=== PATIENT | male | born 1955 | race Caucasian/White ===

== ENCOUNTER 2018-02-15 06:48 | Inpatient (IN) ==
--- NOTE | 2018-02-15 06:56 | History & Physical Report ---
Date of Encounter: 02/15/18 Time of Encounter: 06:55 24 Hour HP Update - Instructions Instructions: If the History and Physical is less than 30 days old and was completed prior to A.M. admission and or procedure and has NOT been updated on calendar day of procedure please complete this update prior to performing procedure. - Update Patient reports changes in Medical Condition: No Changes in examination, assessment, or condition: No Changes in Medication: No Preop tests/diagnostics Reviewed: Yes Surgery Remains Indicated: Yes Consent for Planned Operative Procedure(s) Verified: Yes - Pre-Operative Checklist Preoperative Checklist Indicated: No Prophylactic Antibiotic Ordered: Yes Is VTE Prophylaxis Indicated?: Yes
[2018-02-15] MEDS ORDERED: Lidocaine -MPF 2% 2 ML VIAL ONE (07:02)
[2018-02-15] MEDS ORDERED: *HR* Midazolam HCl 2 MG/2 ML VIAL ONE (07:02)
[2018-02-15] MEDS ORDERED: *HR* FentaNYL (PF) 100 MCG/2 ML VIAL ONE (07:02)
[2018-02-15] MEDS ORDERED: *HR* Rocuronium Bromide 50 MG/5 ML VIAL ONE (07:02)
[2018-02-15] MEDS ORDERED: *HR* Propofol 200 MG/20 ML VIAL IVP ONE (07:02)
[2018-02-15] MEDS ORDERED: Famotidine 20 MG/2 ML VIAL IVP ONE (07:33)
[2018-02-15] MEDS ORDERED: CeFAZolin Syr 2,000MG/20 ML 2,000 MG/20 ML SYRINGE IVPB ONE (07:33)
[2018-02-15] MEDS ORDERED: Acetaminophen IV 1,000 MG/100 ML INFUS..BTL IVPB ONE (07:34)
[2018-02-15] MEDS ORDERED: Pregabalin 75 MG CAPSULE PO ONE (07:34)
[2018-02-15] MEDS ORDERED: Ethanol\\Acetic Acid\\Na Ace\\Ben 1,000 ML IRRIG.SOLN IR ONE (07:38)
[2018-02-15] MEDS ORDERED: Ringers Solution, Lactated 1,000 ML IVC SCH ×2 (07:45)
[2018-02-15] MEDS ORDERED: Tetracaine/PF 20 MG/2 ML AMPUL ONE (08:03)
[2018-02-15] MEDS ORDERED: ROPIVACAINE HCL/PF 0.5% 30 ML VIAL ONE (08:03)
--- NOTE | 2018-02-15 08:06 | Anesthesia Evaluation PreOp ---
Date of Encounter: 02/15/18 Time of Encounter: 08:00 - Past History Planned Operation: Left THR Cardiac History: HTN, Hyperlipidemia Pulmonary History: Denies Any Significant HX ACCOUNTS PAYABLE REPRESENTATIVE History: Denies Any Significant HX Other Medical History: Denies Any Significant HX Anesthesia History: No Prior Anesthetic Complications Alcohol Use: rarely Drug use: none Medications and Allergies Aspirin Enteric Coated [Aspirin EC] 325 mg PO BID 10 Days #20 tablet. [Rx] OxyCODONE Immed Rel [Roxicodone 5 MG] 5 mg PO Q6HR PRN 7 Days #28 tablet [Rx] Acetaminophen [Tylenol] 650 mg PO Q6HR 02/15/18 [History] Bisoprolol/HCTZ 10/6.25 [Ziac 106.25] 1 each PO DAILY 02/15/18 [History] Simvastatin [Zocor] 5 mg PO HS 02/15/18 [History] 3 Allergy/AdvReac Type Severity Reaction Status Date / Time No Known Allergies Allergy Unverified 02/08/18 15:48 - Meds/Allergy Pre-op Review Medications Reviewed: Yes Allergies Reviewed: Yes Beta Blockers on Current Med List: Yes (Bisoprolol today 0500) Anesthesia Results - Labs Laboratory Tests 02/08/18 02/08/18 02/08/18 15:48 15:48 15:48 Hgb 13.7 Hct 38.9 Plt Count 244 PT 11.1 INR 1.0 APTT 31.3 Sodium 141 Potassium 3.9 BUN 16 Creatinine 1.13 - Imaging EKG: report reviewed (SR) Anesthesia Exam O2 Sat Height 1.88 m Height 1.88 m Height 1.88 m Weight 110.677 kg Weight 110.677 kg Weight 110.677 kg O2 Sat by Pulse Oximetry 99 O2 Sat by Pulse Oximetry 99 Vital Signs Temp Pulse Resp BP Pulse Ox 98.1 F 73 18 160/91 99 02/15/18 07:20 02/15/18 07:20 02/15/18 07:20 02/15/18 07:20 02/15/18 07:20 Height: 6'2 Weight: 244 lbs NPO (# of Hours): MN Pain Scale: 0 - HEENT Pupil (Motor): Pupils equal, EOMI Mallampati: III Teeth: Normal Oral Opening: Less than or equal to 3 - ACCOUNTS PAYABLE REPRESENTATIVE LOC: Oriented ACCOUNTS PAYABLE REPRESENTATIVE Motor: Normal RUE, Normal LUE, Normal RLE, Normal LLE, Normal Face ACCOUNTS PAYABLE REPRESENTATIVE Sensory: Normal: RUE, LUE, RLE, LLE, Face - Cardiac Rhythm: Regular Murmur: None JVD: No Carotid Bruit: No - Pulmonary Breath Sounds: bilateral Clear Respiratory Effort: Symmetrical Anesthesia Assess/Plan ASA Score: 2 Modified Liane Scale for Level of Consciousness: Cooperative, oriented, and tranquil Anesthetic Plan: General, Regional Monitoring Plan: Standard Monitors Recovery Plan: PACU (Discussed GA and Fascia Iliaca Block, agrees to proceed)
[2018-02-15] MEDS ORDERED: *HR* OxyCODONE Immed Rel 5 MG TABLET PO PRN (08:40)
[2018-02-15] MEDS ORDERED: *HR* Labetalol 20 MG/4 ML SYRINGE IVP PRN (08:40)
[2018-02-15] MEDS ORDERED: Ondansetron 4 MG/2 ML VIAL IVP ONE (08:40)
--- NOTE | 2018-02-15 08:40 | Anesthesia Procedures ---
Date of Encounter: 02/15/18 Time of Encounter: 08:38 Procedures: Anesthesia - Nerve Block Procedure Date: 02/15/18 Time: 08:38 Allergies/Adv Reactions: No Known Allergies Allergy (Unverified 02/08/18 15:48) Pre-op Diagnosis: left hip oa Surgical Procedure: left total hip Checklist: Correct Patient Identifier, Correct procedure, History checked Correct side: Left Blood Thinner: No Monitor Applied: EKG, BP, Pulse Oximetry Supplemental Oxygen via Nasal Cannula (L/min): 2 Sedation: Versed (mg): 2 Sedation: Fentanyl (mcg): 100 Indication: Post Op Analgesia Pre-op Neuro Deficits: No Block Type: Other (fascia iliaca) Catheter placed: No Sterile Technique: Yes Ultrasound used: Yes Anatomy identified: Yes Visual spread of Local: Yes Neuro Stimulation: No Blood on Needle Aspiration: No Smooth Injection of Local: Yes Pain with Injection of Local: No Prep: Chlorhexadine Needle: 21 x 100 mm Stimuplex Local: Ropivacaine (0.25%) Volume (cc): 60 Number of Attempts: 1 Complications: None/effective block
[2018-02-15] MEDS ORDERED: Dexamethasone 4 MG/ML VIAL ONE (09:27)
[2018-02-15] MEDS ORDERED: Ondansetron 4 MG/2 ML VIAL ONE (09:27)
[2018-02-15] MEDS ORDERED: EPHEDrine 50 MG/ML VIAL ONE (09:46)
--- NOTE | 2018-02-15 10:08 | Orthopedic Operative Note ---
Date of procedure: 02/15/18 Pre-op diagnosis: Left hip arthritis Post-op diagnosis: same Procedure: Procedure: Left Total Hip Replacment robotic-assisted Estimated blood loss: 500 cc Hardware: Metal and polyethylene replacement. Venkata DM Cup:60 cup Femoral 12size stem Head:4 head with Shanelle Procedural Notes: Grade 4 arthritic changes femoral head acetabular socket, procedure performed with robotic assistance. 15 mm short operative versus nonoperative leg preoperatively as measured by CT scan Operative procedure: The patient was brought to the operating room and placed on the operating room table. After general anesthesia was administered the patient was placed in the lateral decubitus position with the operative leg up. All pressure points were padded appropriately and the head was stabilized in the neutral position. The operative extremity was prepped and draped in the sterile surgical fashion patient received IV antibiotic prior to skin incision. 3 Steinmann pins were placed in the iliac crest 3 cm proximal to the anterior superior iliac spine this was for the robotic-assisted sensor. This was done through a small 2 cm incision. A standard posterior approach is made to the operative hip, the incision was made through the skin and subcutaneous tissue hemostasis was obtained with Bovie cautery. Using careful sharp dissection the fascia was identified and incised exposing the external rotators. The femoral checkpoint was placed leg length was measured at this time utilizing robotic assistance. The external rotators were released off the greater trochanter and tagged with # 2 FiberWire suture. The capsule was T'd open and the hip was brought into internal rotation. Patient noted to have grade 4 arthritic changes femoral head. The femoral neck cut was made at the appropriate level roughly 15 mm proximal to the lesser trochanter aced on preoperative templating. An anterior capsulotomy was performed for the anterior retractor. Soft tissues removed from the acetabulum. Patient noted to have grade 4 arthritic changes acetabulum. The acetabulum checkpoint was placed confirmed. The acetabulum was then mapped with robotic assistance. Based on the preoperative plan the acetabulum was reamed in one step with a 59 reamer. The 60 acetabulum was impacted with robotic assistance and 42 degrees of abduction and 18 degrees of anteversion. The hip was brought back in to internal rotation and prepared with the box liner followed by the canal finder followed by the reaming process to a size 11 /12 broaching process in 20 degrees anteversion. It was broached up to the appropriate size 12. Trial reduction revealed leg lengths close to normal. The femoral implant was impacted in place in 20 degrees of anteversion. Trial reduction found the hip to be stable with 4 head and Shanelle. The trials were removed and the real implants were impacted in place. The hip was reduced, patient had robotic confirmed leg length of 1 mm shorter than the contralateral side. The hip had excellent stability with forward flexion to 90 degrees adduction of 30 degrees and internal rotation of 60 degrees. The hip had no shuck. The hips after 2 minutes with a antibacterial solution. It was irrigated out with 2 L of pulse irrigation. The checkpoints were removed, Steinmann pins were removed. The hip was closed by the PA. The deep tissue was irrigated and closed deep with #1 PDS suture superficially with 0 PDS suture and skin was closed with Dermabond and zip tie. The patient was placed in a sterile dressing and abduction pillow. The patient was extubated and transferred to the recovery room in stable condition. Anesthesia: GETA Surgeon: Vernon Morrison Was there an funeral director's assistant present: Yes Butcherette: Yasemin Tripathi Estimated blood loss (cc): 500 Condition: stable Disposition: PACU
[2018-02-15] MEDS ORDERED: *HR* Morphine 10 MG/ML VIAL ONE (10:17)
[2018-02-15] MEDS: MORPHINE SUL Oral CONC 10 MG/0.5 ML ORAL.SYG SL PRN ×2 (10:50→11:00)
[2018-02-15 11:09] LABS: Hematocrit 37.6 % (37.5-50.1); Hemoglobin 13.1 g/dL (12.9-16.9)
--- NOTE | 2018-02-15 11:25 | Anesthesia Evaluation Post Op ---
Date of Encounter: 02/15/18 Time of Encounter: 11:25 - Vital Signs Vital Signs: Vital Signs/O2 Sat/Glucose, Most Current Temp Pulse Resp BP Pulse Ox 02/15/18 11:07 97.7 F 80 14 117/63 98 02/15/18 10:57 79 16 101/67 95 02/15/18 10:47 89 16 109/69 98 02/15/18 10:37 97.7 F 102 16 128/75 99 02/15/18 08:39 78 129/66 98 02/15/18 08:27 89 154/74 100 02/15/18 07:41 98.1 F 73 18 160/91 99 - Lungs Lungs: Clear Ascult./Percussion - Airway Airway: Non-obstructed - Cardiovascular Regular Rate - Mental Status Mental Status: Alert & Oriented, Answers Appropriately - Pain Pain Scale: 2 - Nausea Vomiting Nausea Vomiting: Not Present - Hydration Hydration: Ice chips - Discharge PostOp Status: Transfer Patient to floor
[2018-02-15] MEDS ORDERED: MOM Conc 10 ML UD.LIQ PO PRN (11:46)
[2018-02-15] MEDS ORDERED: traMADol 50 MG TABLET PO PRN (11:46)
[2018-02-15] MEDS ORDERED: Naloxone 0.4 MG/ML INJ IVP PRN (11:46)
[2018-02-15] MEDS ORDERED: Temazepam 15 MG CAPSULE PO PRN (11:46)
[2018-02-15] MEDS ORDERED: Ondansetron 4 MG/2 ML VIAL IVP PRN (11:46)
[2018-02-15] MEDS ORDERED: Sennosides 8.6 MG TABLET PO PRN (11:46)
[2018-02-15] MEDS: Acetaminophen 325 MG TABLET PO SCH ×3 (12:18→23:05)
[2018-02-15] MEDS: Ringers Solution, Lactated 1,000 ML IVC SCH (12:22)
[2018-02-15] MEDS: Bisoprolol/HCTZ 10/6.25 TABLET PO SCH (12:32)
[2018-02-15] MEDS: Ascorbic Acid 500 MG TABLET PO SCH ×2 (15:36→18:02)
[2018-02-15] MEDS: *HR* OxyCODONE/APAP 5/325 TABLET PO PRN ×2 (15:36→23:11)
[2018-02-15] MEDS: Multivit/Ca/Min/Fe/FA 1 TAB TABLET PO SCH (15:37)
[2018-02-15] MEDS ORDERED: *HR* Enoxaparin 30 MG/0.3 ML SYRINGE SQ SCH (18:00)
[2018-02-15] MEDS: *HR* Enoxaparin 30 MG/0.3 ML SYRINGE SQ SCH (18:03)
[2018-02-16] MEDS: Ringers Solution, Lactated 1,000 ML IVC SCH (02:19)
[2018-02-16 02:59] LABS: Hematocrit 31.1 % (37.5-50.1)
[2018-02-16 03:05] LABS: Hemoglobin 10.8 g/dL (12.9-16.9)
[2018-02-16 03:22] LABS: BUN/Creatinine Ratio 19 (6-26); Blood Urea Nitrogen 27 mg/dL (8-23); Calcium 8.8 mg/dL (8.6-10.3); Carbon Dioxide 23 mEq/L (23-29); Chloride 104 mEq/L (98-107); Glucose 167 mg/dL (70-105); Osmolality,Calculated 291 (280-300); Potassium 4.1 mEq/L (3.5-5.1); Sodium 136 mEq/L (136-145); eGFR For African Americans > 60 (> 60); eGFR For Non-African Americans 51 (> 60)
[2018-02-16] MEDS: *HR* Enoxaparin 30 MG/0.3 ML SYRINGE SQ SCH (05:50)
[2018-02-16] MEDS: *HR* OxyCODONE/APAP 5/325 TABLET PO PRN (05:55)
[2018-02-16] MEDS: Acetaminophen 325 MG TABLET PO SCH ×2 (05:56→09:08)
--- NOTE | 2018-02-16 06:24 | Orthopedics Progress Note ---
Date of Encounter: 02/16/18 Time of Encounter: 06:24 Subjective Interval history: Patient was seen this morning doing well without complaints. Afebrile vital signs stable. Operative extremity: Neurovascularly intact Dressing clean dry and intact Calves nontender Assessment and plan: Continue with postoperative care Hematocrit 31 discharged today Objective Vital signs: Vital Signs Temp Pulse Resp BP Pulse Ox 02/16/18 04:03 98.1 F 84 16 138/73 94 02/15/18 23:01 97.6 F 78 15 149/83 98 02/15/18 18:30 97.6 F 72 15 154/87 96 02/15/18 14:38 97.6 F 97 14 128/80 95 02/15/18 12:20 83 18 117/66 99 02/15/18 11:50 97 F L 81 18 136/73 98 02/15/18 11:49 98.9 F 76 18 138/83 97 02/15/18 11:07 97.7 F 80 14 117/63 98 02/15/18 10:57 79 16 101/67 95 02/15/18 10:47 89 16 109/69 98 02/15/18 10:37 97.7 F 102 16 128/75 99 02/15/18 08:39 78 129/66 98 02/15/18 08:27 89 154/74 100 02/15/18 07:41 98.1 F 73 18 160/91 99 02/15/18 07:20 98.1 F 73 18 160/91 99 Intake and Output 02/15/18 02/15/18 02/16/18 15:59 23:59 07:59 Intake Total 120 / 120 100 / 100 1000 / 1000 Output Total 500 / 500 100 / 100 Balance -380 / -380 0 / 0 1000 / 1000 Intake: IV Fluids 120 / 120 100 / 100 1000 / 1000 Lactated Ringers 1,000 ML @ 75 1000 / 1000 mls/hr IVC .[id number] SUSANA Rx#: [id number] Ofirmev 1,000 mg/100 ml 1,000 100 / 100 mg In 100 ml @ 400 mls/hr IVPB ONCE ONE Rx#:[id number] Ancef Syringe 2,000 MG/20 ML 2, 20 / 20 000 mg In 20 ml @ 200 mls/hr IVPB PREOP ONE Rx#:[id number] Ancef 2,000 MG In 0.9 % Sodium 100 / 100 Chloride 100 ML @ 200 mls/hr IVPB Q8HR SUSANA Rx#:[id number] Output: Urine 100 / 100 Estimated Blood Loss 500 / 500 - Labs CBC & BMP: 02/16/18 02:32 02/16/18 02:32 Labs: Abnormal lab results Hgb 10.8 g/dL (12.9-16.9) L D 02/16/18 02:32 Hct 31.1 % (37.5-50.1) L 02/16/18 02:32 BUN 27 mg/dL (8-23) H 02/16/18 02:32 Creatinine 1.41 mg/dL (0.70-1.30) H 02/16/18 02:32 Est GFR (Non-Af Amer) 51 (> 60) L 02/16/18 02:32 Glucose 167 mg/dL (70-105) H 02/16/18 02:32 - VTE Documentation of Mechanical Device: Venous foot pump, device Consult Discharge Plan - Plan Referrals: Rikki Montgomery MD [Primary Care Provider] - Rikki Lees DO [Family Provider] -
[2018-02-16 08:26] VITALS: BP 128/69
[2018-02-16] MEDS: Multivit/Ca/Min/Fe/FA 1 TAB TABLET PO SCH (09:07)
[2018-02-16] MEDS: Bisoprolol/HCTZ 10/6.25 TABLET PO SCH (09:07)
[2018-02-16] MEDS: Ascorbic Acid 500 MG TABLET PO SCH (09:08)
[2018-02-16] MEDS: *HR* OxyCODONE Immed Rel 5 MG TABLET PO PRN ×2 (10:17→14:57)
[2018-02-16] MEDS ORDERED: tiZANidine 4 MG TABLET PO PRN (13:29)
--- NOTE | 2018-02-16 14:17 | Discharge Summary ---
Orders not resulted at time of discharge: Pending orders 02/15/18 07:34 US anesthesia pain block [US] Routine 02/15/18 10:08 Surgical Pathology [PTH] Routine 02/17/18 04:00 Basic Metabolic Panel AM 0400 Hemoglobin and Hematocrit [HEME] AM 0400 Date of Encounter: 02/16/18 Time of Encounter: 13:20 - Discharge Diagnosis (1) Arthritis of left hip Priority: Primary Status: Chronic (2) Status post total hip replacement, left Priority: Primary Status: Acute (3) HTN (hypertension) Priority: Secondary Status: Chronic Qualifiers: Hypertension type: unspecified Qualified Code(s): I10 - Essential (primary ) hypertension (4) HLD (hyperlipidemia) Priority: Secondary Status: Chronic Qualifiers: Hyperlipidemia type: unspecified Qualified Code(s): E78.5 - Hyperlipidemia , unspecified - Hospital Course Hospital course: Mr. Dias is a 62 year old male PCR- POD#1 L THR robotic 02/15 [facility] PCR - Patient seen at bedside. Alert and oriented x 3 Labwork and medications reviewed. Vital signs reviewed. No calf tenderness b/l. Neurovascularly intact b/l. Pain control: Adequate Participating in PT. All questions and concerns addressed. Educated on use of incentive spirometer, ambulation, and hydration. Patient educated on post-operative restrictions and care. Addressed: Patient concerned re: postop constipation. Stool softener prescribed. Discussed opioid-induced constipation and strategies to reduce. Patient verbalized understanding. Patient with muscle spasms and pain to left thigh - muscle relaxer prescribed. D/C plan: home with outpatient therapy - Time Spent with Patient Total time spent providing and/or coordinating discharge services: Less than 30 minutes - Discharge Medications Prescriptions: Docusate [Colace] 100 mg PO DAILY 14 Days #14 capsule Tizanidine HCl 4 mg PO TID PRN 7 Days #21 tablet PRN Reason: Muscle Spasm Home Medications: Aspirin Enteric Coated [Aspirin EC] 325 mg PO BID 10 Days #20 tablet. [Rx] OxyCODONE Immed Rel [Roxicodone 5 MG] 5 mg PO Q6HR PRN 7 Days #28 tablet [Rx] Acetaminophen [Tylenol] 650 mg PO Q6HR 02/15/18 [History] Bisoprolol/HCTZ 05/08.25 [Ziac 05/08.25] 1 each PO DAILY 02/15/18 [History] Simvastatin [Zocor] 5 mg PO HS 02/15/18 [History] Docusate [Colace] 100 mg PO DAILY 14 Days #14 capsule 02/16/18 [Rx] Tizanidine HCl 4 mg PO TID PRN 7 Days #21 tablet 02/16/18 [Rx] Allergies/Adverse Reactions: 3 Allergy/AdvReac Type Severity Reaction Status Date / Time No Known Allergies Allergy Verified 02/15/18 12:26 Date of admission: 02/15/18 11:37 Primary care physician: Rikki Montgomery MD Consults: 02/15/18 11:46 Consult to Nurse Navigator [CONS] Routine Comment: ortho navigator Consult to Occupational Therapy [CONS] Routine Comment: Evaluate, develop and implement POC Reason for Consult: total hip replacement Does patient have active BEDREST order?: No Is patient medically & hemodynamically stable?: Yes Consult to Physical Therapy [CONS] Routine Comment: Evaluate, develop and implement POC Reason for Consult: total hip replacement Does patient have active BEDREST order?: No Is patient medically & hemodynamically stable?: Yes Consult to Flow Worker [CONS] Routine Reason for SW Consult: post op joint replacement RT Post Op Consult [CONS] Routine Anticipated date of discharge: 02/16/18 - VTE Documentation of Mechanical Device: Venous foot pump, device Labs on day of discharge: Labs from last 24 hours 02/16/18 02/16/18 02:32 02:32 Hgb 10.8 L D Hct 31.1 L Sodium 136 Potassium 4.1 Chloride 104 Carbon Dioxide 23 BUN 27 H Creatinine 1.41 H Est GFR ( Amer) > 60 Est GFR (Non-Af Amer) 51 L BUN/Creatinine Ratio 19 Glucose 167 H Calculated Osmolality 291 Calcium 8.8 - Impressions ITS Impressions Hip X-Ray 02/15/18 01:00 IMPRESSION: Expected postsurgical changes following total left hip arthroplasty. D/ / Emmanuel Antunez / Emmanuel Antunez Interpreting Provider: Emmanuel Antunez - Patient Status Disposition: Home, Self-Care Condition: Good Functional capacity at discharge: uses cane/walker Overall status at discharge: patient is progressing back to baseline - Discharge Instructions Follow Up With: Rikki Montgomery MD [Primary Care Provider] - Rikki Lees DO [Family Provider] - - Diet and Activity Activity: as per physical therapy Diet: advance to your usual diet
== END 2018-02-16 17:06 | disposition home or self-care (01) | DRG 470 ==
LOC: SAMDAY 06:48 → 3NENU 11:37
PROVIDERS: ADMIT Orthopaedic Surgery; ATTEND Orthopaedic Surgery